=== PATIENT | female | born 1960 | race Caucasian/White ===

== ENCOUNTER 2020-10-04 08:00 | Outpatient (CLI) | payer OTHER | END 2020-10-04 08:30 | disposition home or self-care (01) | LOC: PPH VACUNA 08:00 | DX: Z23 Encounter for immunization (principal) ==

== ENCOUNTER 2020-10-21 13:11 | Outpatient (CLI) | payer OTHER | END 2020-10-21 13:16 | disposition home or self-care (01) | LOC: PPH VACUNA 13:11 | PROVIDERS: ATTEND Emergency Medicine Pediatric Emergency Medicine | DX: Z23 Encounter for immunization (principal) ==